=== PATIENT | male | born 1980 | race African-American/Black ===

== ENCOUNTER 2016-11-03 19:42 | Emergency (ER) | payer SELFPAY ==
[~2016-11-03] VITALS: Ht 177.8 cm; Wt 96.0 kg
[2016-11-03 19:52] VITALS: BP 140/100
== END 2016-11-03 21:46 | disposition left against medical advice (07) ==
LOC: ER 19:42
DX: R53.83 Other fatigue (principal); Z53.21 Procedure and treatment not carried out due to patient leaving prior to being seen by health care provider

== ENCOUNTER 2025-03-22 16:13 | Emergency (ER) | payer SELFPAY ==
[~2025-03-22] VITALS: Ht 177.8 cm; Wt 100.0 kg
[2025-03-22 16:17] VITALS: TEMP 36.9; O2SAT 98
[2025-03-22 19:20] VITALS: BP 139/92; PULSE 73; RESP 16; O2SAT 96
== END 2025-03-22 19:23 | disposition home or self-care (01) ==
LOC: ER 16:13
DX: M84.40XA Pathological fracture, unspecified site, initial encounter for fracture (principal); I10 Essential (primary) hypertension; F12.90 Cannabis use, unspecified, uncomplicated; Z98.890 Other specified postprocedural states
CPT/HCPCS: 29130; 73130; 99283